=== PATIENT | female | born 1995 | race Caucasian/White ===

== ENCOUNTER 2020-10-03 21:15 | Emergency (ER) | payer SELFPAY ==
[2020-10-03 21:17] VITALS: BP 123/80; PULSE 102; RESP 18; TEMP 35.8; O2SAT 97; BMI 20.1
[2020-10-03] MEDS: 0.9% Normal Saline 1,000 ML 1000 ML IV (22:40)
--- NOTE | 2020-10-03 22:45 | RAD_ITS ---
STUDY: X-RAY - ACUTE ABDOMINAL SERIES REASON FOR EXAM: Female, 25 years old. Pain TECHNIQUE: Single view of the chest. Supine, and erect view(s) of the abdomen were obtained. 4 total views obtained COMPARISON: None. FINDINGS: The lungs are clear and expanded. Normal size heart. Normal mediastinum and jeferson. Normal visualized pulmonary arteries. Normal visualized aortic arch and descending thoracic aorta. There is an abundance of fecal material throughout the colon. The soft tissue structures of the abdomen and pelvis are unremarkable. Normal visualized osseous structures. RAD/Acute Abdomen Inc Chest IMPRESSION: No acute pulmonary process No acute abdominal or pelvic process, retained stool throughout the colon Electronically Signed: Aries Alvarez MD at 23:18 EDT , Service support ,
[2020-10-03 23:12] LABS: Absolute Lymphocyte Count 1.97 X10^3/uL (0.83-4.51); Absolute Neutrophil Count 11.4 X10^3/uL (2.0-7.7); Basophil# 0.07 X10^3/uL; Basophil% 0.5 % (0-1); Eosinophil# 0.25 X10^3/uL; Eosinophils% 1.7 % (0-5); Hematocrit 38.1 % (37-47); Hemoglobin 12.2 g/dL (12.0-15.0); Lymphocyte # 1.97 X10^3/ul (0.83-4.51); Lymphocyte % 13.7 % (19-41); Mean Corpuscular Hgb 28.8 pg (27.0-32.0); Mean Corpuscular Volume 90.1 fL (81-99); Mean Platelet Vol. 8.5 fl (6.2-12.0); Monocyte# 0.66 X10^3/uL; Monocyte% 4.6 % (0-10); NRBC Flagged by Analyzer 0 % (0-5); Neutrophil % 79.1 % (47-70); Platelet Count 569 K/mm3 (150-450); RBC Distribution Width SD 39.5 fl (35.1-43.9); Red Blood Count 4.23 M/mm3 (4.2-5.4); White Blood Count 14.4 K/mm3 (4.4-11.0)
[2020-10-03 23:29] LABS: ALB/GLOB Ratio 0.7 RATIO (0.9-2.4); AST(SGOT) 8 U/L (15-37); Alanine Aminotransfer ALT/SGPT 19 U/L (13-56); Albumin, Serum 3.4 g/dL (3.2-5.0); Alkaline Phosphatase 87 U/L (45-117); Anion Gap 5 (5-15); BUN 10 mg/dL (7-18); BUN/Creat Ratio 16.3 RATIO (10-20); Chloride 104 mmol/L (98-107); Creatinine, Serum 0.61 mg/dL (0.55-1.02); EST Glomerular Filtration Rate 128 mL/min (>60); Est Glom Filt Rate - Afr Amer 155 mL/min (>60); Estimated Creatinine Clearance 112.98 ml/min; Globulin 4.6 g/dL (2.2-4.2); Glucose 86 mg/dL (74-106); Lipase 72 U/L (73-393); Potassium 3.7 mmol/L (3.5-5.1); Sodium Level 138 mmol/L (136-145)
--- NOTE | 2020-10-03 23:34 | EDS_ITS ---
HPI History of Present Illness Chief Complaint: Substance Abuse Informant: patient Narrative Narrative: Patient arrives with multiple complaints. Her first complaint is constipation. This has been a problem for about 3 years. She has never seen a primary physician or GI doctor. She goes to emergency department. She is frustrated because they give her an enema or medicine and then she goes home. She states she gets constipated again. She also uses methamphetamines. I explained that these dehydrate you and also contribute to constipation. She denies heroin use. Patient also states that she is having trouble urinating. She has had this before when she is badly constipated. She is drinking. She has not had nausea or vomiting. She would like a catheter. After grandmother is out of the room, she states that she was seen in another emergency department about a month ago and diagnosed with gonorrhea. She is not sure how they did this but she thinks it was a culture. But they called her back and stated she has gonorrhea. They called in a prescription but she never had it filled. She does have some discharge. I offered to do repeat pelvic exam some concerned about her pain trouble urinating and this history but she does not want a pelvic exam. Patient does have chronic constipation but no other significant past medical history No active medications No known allergies No abdominal surgeries. She did have prior knee surgery. She had a vaginal delivery about 3 years ago. [facility] Medical History Ovarian cyst Home Medications doxycycline hyclate 100 mg PO BID #20 cap 10/04/20 [Rx Last Taken Unknown] Allergy/AdvReac Type Severity Reaction Status Date / Time No Known Allergies Allergy Verified 10/03/20 21:19 Surgical History (Updated 10/03/20 @ 21:34 by Lynette Hair) H/O knee surgery Social History Smoking Status: Current every day smoker tobacco type: cigarettes ROS ROS ED Constitutional Constitutional ED: Denies chills or fever(s) Eyes Eyes: Denies blurry vision ENT ENT ED: Denies rhinorrhea or sore throat Cardiovascular Cardiovascular: Denies chest pain or palpitations Respiratory/Chest Respiratory/Chest: Denies cough, dyspnea or sputum Gastrointestinal Gastrointestinal: Reports abdominal pain and constipation; Denies diarrhea, melena, nausea or vomiting Genitourinary Genitourinary ED: Reports other Details: Patient does report some mild vaginal discharge has been going on for 1 to 2 months. However she does not want any direct evaluation for this. ; Denies dysuria or hematuria Musculoskeletal Musculoskeletal: Denies arthralgias or myalgias Integumentary Denies rash Neurologic Neurologic: Denies headache(s) Endocrine Endocrinology: Denies polydipsia or polyuria EXAM Physical Exam Narrative Exam Narrative: Initially was hard to get the patient to talk. She would lay on her side. We did wake her up. As she stayed here longer she has become more talkative and shared a little more information with this. Const Vital Signs: 10/04/20 01:31 Pulse Rate 110 H Respiratory Rate 15 Blood Pressure 103/68 Pulse Ox 100 Positive well nourished and well developed Constitutional Narrative: Patient is awake alert. She is initially sleeping. General Appearance ED: well developed HEENT Reports dry mucous membranes Negative for trauma or tenderness Mouth ED: Yes dry mucous membranes Mouth: dry mucous membranes Eyes PERRL Chest Wall inspection of chest normal Resp normal respiratory effort and clear to auscultation bilaterally Auscultation: Negative for wheezes Cardio regular rate and regular rhythm GI normal to inspection, nondistended, normoactive bowel sounds GI Narrative: Abdomen is not overall distended but she does have fullness in the suprapubic area. Mild tenderness there. But no rebound or guarding anywhere. No CVA tenderness. Palpation: soft Back/Spine no CVA tenderness Extremity normal to inspection Neuro Sensorium / Orientation: alert Psych mental status grossly normal Skin no rashes or lesions noted MDM MDM MDM Narrative Medical decision making narrative: I again talked with patient about working up the vaginal discharge. She just states she just wants antibiotics that she was supposed to take. We did do a bladder scan that showed 600 cc of urine. We will straight catheter for urine at this time. Renal function is normal. Liver function tests are overall normal. She does have a mild elevation of white count but this could be from multiple issues. This patient possibly could have PID but she does not want evaluation work-up or exam for this. We are still pending urinalysis. X-rays do show significant constipation but no sign of obstruction. Her symptoms have been going on for months or years. I will get the urine back. Patient had a bladder scan that showed about 600 cc. This was drained. She feels quite a bit better and her abdomen feels better. We discussed options. She did agree to have an enema here. But she wants to go home. We will write her to have some magnesium citrate which she can take at home. With her positive GC and her symptoms I will treat her as potential gonorrhea. She does not want an evaluation for this. We will give her Rocephin and doxy to provide better coverage. We discussed returning with pain, fevers or other concerns. Lab Data Labs: Laboratory Results - last 24 hr 10/03/20 23:55 Urine Color Yellow Urine Clarity Clear Urine pH 7.0 Ur Specific [place] 1.010 Urine Protein 15 H Urine Glucose (UA) Normal Urine Ketones 5 H Urine Occult Blood Negative Urine Nitrite Negative Urine Bilirubin Negative Urine Urobilinogen 1 H Ur Leukocyte Esterase Negative Urine RBC 0 SEEN Urine WBC 0 SEEN Ur Squamous Epith Cells 0 SEEN Urine Bacteria 0 SEEN Urine Mucus 0 SEEN Urine Test Negative Radiography Diagnostic Testing: Radiology Impression Acute Abdomen Series 10/03/20 22:45 IMPRESSION: No acute pulmonary process No acute abdominal or pelvic process, retained stool throughout the colon Electronically Signed: Aries Alvarez MD at 23:18 EDT , Service support , Discharge Plan Triage Chief Complaint: Substance Abuse ED Provider: Quentin Nieto Dx/Rx/DC Orders Clinical Impression: Constipation, History of gonorrhea, Acute urinary retention Instructions: ED Constipation (Adult) Prescriptions: New doxycycline hyclate 100 mg capsule 100 mg PO BID Qty: 20 RF: 0 Primary Care Provider: Care Physician,No Primary Referrals: Nohelia Murillo MD [STAFF PHYSICIAN] - As soon as possible Care Physician,No Primary [Primary Care Provider] - Disposition Disposition: Home, Self Care Discharge Date/Time: 10/04/20 01:41
[2020-10-04 00:15] LABS: Bacteria 0 SEEN /hpf (None Seen); Mucous, Urine 0 SEEN /hpf (<or=2+); Red Blood Cells-Urine 0 SEEN /hpf (0-5); Squamous Epithelial Cells - UA 0 SEEN /hpf (5-10); White Blood Cells 0 SEEN /hpf (0-5)
[2020-10-04 00:16] LABS: Internal QC Validated? YES +Cl - CLEAR BKGD; Pregnancy, Urine Negative Negative
[2020-10-04 00:17] LABS: Color, Urine Yellow (Yellow); Glucose, Dipstick Normal (Normal); Ketone-Dipstick 5 mg/dl (Negative); Leukocyte Esterase-Dipstick Negative /ul (Negative); Nitrite-Dipstick Negative (Negative); Occult Blood-Urine Negative /ul (Negative); Protein-Dipstick 15 mg/dl (Negative); Urine Bilirubin Dipstick Negative (Negative); Urine Clarity Clear (Clear); Urine Urobilinogen 1 mg/dl (Normal)
[2020-10-04] MEDS: Acetaminophen 325 MG Tablet 650 MG PO (01:24)
[2020-10-04] MEDS: Magnesium Citrate 300 ML PO (01:25)
[2020-10-04] MEDS: Ceftriaxone 500 MG Vial IM (01:25)
[2020-10-04 01:31] VITALS: BP 103/68; PULSE 110; RESP 15; O2SAT 100
== END 2020-10-04 01:41 | disposition home or self-care (01) ==
PROVIDERS: Emergency Provider Emergency Medicine
DX: K59.09 Other constipation (principal); R33.9 Retention of urine, unspecified; F17.210 Nicotine dependence, cigarettes, uncomplicated; Z86.19 Personal history of other infectious and parasitic diseases
CPT/HCPCS: 74022; 80053; 81001; 81025; 83690; 85025; 96360; 96372; 99285